=== PATIENT | female | born 1955 | race Hispanic/Latino ===

== ENCOUNTER 2017-05-28 22:29 | Emergency (ER) | payer MEDICARE ==
--- NOTE | 2017-05-28 23:26 | XRay Report ---
FINAL REPORT EXAM: XR ANKLE 3+V LT HISTORY: left ankle injury and swelling TECHNIQUE: Left ankle three views 3 images PRIORS: None. FINDINGS: Bone mineralization appears within normal limits. There is a transverse fracture of distal fibula. Soft tissue swelling is seen over the lateral malleolus. IMPRESSION: 1. Traumatic fracture of the distal fibula.
[2017-05-29] MEDS ORDERED: ZOFRAN ODT PO ONE (00:20)
--- NOTE | 2017-05-29 00:21 | Emergency Department Report ---
ED Lower Extremity HPI - General Chief Complaint: Extremity Injury, Lower Stated Complaint: LEFT ANKLE PAIN Source: patient Mode of arrival: Wheelchair Limitations: No Limitations - History of Present Illness Initial Comments: 61-year-old female past medical history multiple sclerosis, osteoporosis, diabetes presents with complaint of left ankle pain and multiple abrasions status post mechanical fall. Patient states that her fell backward onto her and she fell backward as well. Complaining of pain in left distal ankle. He sustained multiple abrasions during fall. Denies hitting her head no loss of consciousness reported. This was witnessed by her son and grandson and daughter who are at bedside. Patient fell onto her buttocks. Happened on concrete porch which is why she has abrasions. Unaware of tetanus status. Patient adamant and family adamant that she did not hit her head or neck. No loss of consciousness reported MD Complaint: ankle injury -: During the night Injury: Knee: Left Place: home Severity: mild Severity scale (0 -10): 4 Improves With: nothing Worsens With: weight bearing, movement Context: fall, direct blow Associated Symptoms: swelling, unable to bear weight - Related Data Previous Rx's Medication Instructions Recorded Last Taken Type Bacitracin/Polymixin B [Polysporin] 1 applicatio TP BID #1 tube 05/29/17 Unknown Rx HYDROcodone/APAP 5-325 [Pease 1 each PO Q6HR PRN #12 tablet 05/29/17 Unknown Rx 5/325] Allergies Allergy/AdvReac Type Severity Reaction Status Date / Time No Known Allergies Allergy Unverified 05/28/17 22:38 ED Review of Systems ROS: Stated complaint: LEFT ANKLE PAIN Other details as noted in HPI Constitutional: denies: chills, fever Eyes: denies: eye pain, eye discharge, vision change ENT: denies: ear pain, throat pain Respiratory: denies: cough, shortness of breath, wheezing Cardiovascular: denies: chest pain, palpitations Endocrine: no symptoms reported Gastrointestinal: denies: abdominal pain, nausea, diarrhea Genitourinary: denies: urgency, dysuria, discharge Musculoskeletal: denies: back pain, joint swelling, arthralgia Skin: as per HPI. denies: rash, lesions Neurological: denies: headache, weakness, paresthesias Psychiatric: denies: anxiety, depression Hematological/Lymphatic: denies: easy bleeding, easy bruising ED Past Medical Hx - Past Medical History Hx Diabetes: Yes Hx Arthritis: Yes (oeteoporosis) Hx COPD: Yes (home O2 at night) Additional medical history: MS - Surgical History Additional Surgical History: ectopic ,right knee - Social History Smoking Status: Current Every Day Smoker Substance Use Type: None - Medications Home Medications: Home Medications Medication Instructions Recorded Confirmed Last Taken Type Bacitracin/Polymixin B [Polysporin] 1 applicatio TP BID #1 tube 05/29/17 Unknown Rx HYDROcodone/APAP 5-325 [Pease 1 each PO Q6HR PRN #12 tablet 05/29/17 Unknown Rx 5/325] ED Physical Exam - General Limitations: No Limitations General appearance: alert, in no apparent distress - Head Head exam: Present: atraumatic, normocephalic - Eye Eye exam: Present: normal appearance, PERRL, EOMI - ENT ENT exam: Present: mucous membranes moist - Neck Neck exam: Present: normal inspection - Respiratory Respiratory exam: Present: normal lung sounds bilaterally. Absent: respiratory distress - Cardiovascular Cardiovascular Exam: Present: regular rate, normal rhythm. Absent: systolic murmur, diastolic murmur, rubs, gallop - GI/Abdominal GI/Abdominal exam: Present: soft, normal bowel sounds - Extremities Exam Extremities exam: Present: normal inspection - Back Exam Back exam: Present: normal inspection - Neurological Exam Neurological exam: Present: alert, oriented X3 - Psychiatric Psychiatric exam: Present: normal affect, normal mood - Skin Skin exam: Present: warm, dry, intact, normal color. Absent: rash ED Course Vital Signs 05/28/17 05/29/17 22:33 00:59 Temperature 98.5 F Pulse Rate 100 H Respiratory 18 18 Rate Blood Pressure 148/98 O2 Sat by Pulse 98 Oximetry ED Lower Extremity MDM - Medical Decision Making A/P: Left distal fibular fracture, abrasions 1-patient sustained no head or neck trauma no signs of trauma to head or neck is fully lucid awake alert and oriented 3 and cooperative 2- patient placed in left distal posterior splint for fibular fracture. Distal pulses and sensation intact 3-crutches for ambulation, nonweightbearing for now 4-short course Pease 5-follow-up with orthopedics 6-triple antibiotic ointment to abrasions, none require sutures, tetanus vaccine update Critical care attestation.: If time is entered above; I have spent that time in minutes in the direct care of this critically ill patient, excluding procedure time. ED Disposition Clinical Impression: Abrasions of multiple sites Left fibular fracture Qualifiers: Encounter type: initial encounter Fibula location: distal Fracture type: closed Fracture morphology: other fracture Qualified Code(s): S82.832A - Other fracture of upper and lower end of left fibula, initial encounter for closed fracture Ankle pain, left Qualifiers: Chronicity: acute Qualified Code(s): M25.572 - Pain in left ankle and joints of left foot Disposition: TO HOME OR SELFCARE Is pt being admited?: No Does the pt Need Aspirin: No Condition: Stable Instructions: Ankle Fracture (ED), Abrasion (ED), Crutch Instructions (ED) Prescriptions: Bacitracin/Polymixin B [Polysporin] 1 applicatio TP BID #1 tube HYDROcodone/APAP 5-325 [Pease 5/325] 1 each PO Q6HR PRN #12 tablet PRN Reason: Pain Referrals: MUNDO CONN MD [Staff Physician] - 3-5 Days [facility] [Provider Group] - 3-5 Days [facility] [Outside] - 3-5 Days [facility] [Outside] - 3-5 Days Forms: Work/School Release Form(ED) Time of Disposition: 03:12
[2017-05-29] MEDS ORDERED: ZOFRAN ODT ONE (00:25)
[2017-05-29] MEDS ORDERED: NORCO 5/325 ONE (00:25)
[2017-05-29] MEDS ORDERED: NORCO 5/325 PO ONE ×2 (00:58→03:07)
[2017-05-29] MEDS ORDERED: TRIPLE ANTIBIOTIC TP ONE (03:06)
[2017-05-29] MEDS ORDERED: BOOSTRIX IM ONE (03:07)
[2017-05-29 03:55] VITALS: BP 121/80
== END 2017-05-29 03:55 | disposition home or self-care (01) ==
LOC: ED 22:29
DX: S82.832A Other fracture of upper and lower end of left fibula, initial encounter for closed fracture (principal); E11.9 Type 2 diabetes mellitus without complications; H44.9 Unspecified disorder of globe; F17.200 Nicotine dependence, unspecified, uncomplicated; T14.8 Other injury of unspecified body region
CPT/HCPCS: 90471; 90715; A6250; Q0162